=== PATIENT | female | born 1980 | race Caucasian/White ===

== ENCOUNTER → 2024-04-24 | Outpatient (CLI) | payer MEDICAID ==
[~2024-04-24] MED LIST: LISI10TA24 PO; PANT20TA18 PO
== END | disposition home or self-care (01) ==
LOC: RAH 09:24
PROVIDERS: ATTEND Internal Medicine Gastroenterology
DX: K21.9 Gastro-esophageal reflux disease without esophagitis (principal); R13.10 Dysphagia, unspecified; R12 Heartburn
CPT/HCPCS: 74240